=== PATIENT | female | born 1995 | race Caucasian/White ===

== ENCOUNTER 2016-11-19 11:09 | Emergency (ER) | payer SELFPAY ==
[~2016-11-19] VITALS: Ht 165.1 cm; Wt 70.0 kg
[2016-11-19 11:14] VITALS: BP 124/81; PULSE 99; RESP 16; TEMP 98.9; O2SAT 98
--- NOTE | 2016-11-19 11:42 | PD ---
HPI Chief Complaint: Musculoskeletal Complaint Time Seen by Provider: 11:38 Travel History International Travel<30 days: No Contact w/Intl Traveler<30days: No Traveled to known affect area: No History of Present Illness HPI 21-year-old female presents to the emergency room for evaluation of right foot pain and swelling for the past 2 days. Patient states she was riding her house when she slammed her right lateral foot on the couch. She has had severe pain since then. Pain is worse with range of motion and palpation. Swelling has decreased slightly since onset. She has not applied any heat or ice or taken any Tylenol or ibuprofen for pain. She has been ambulatory since onset of symptoms. Denies chronic medical conditions or daily medications. Denies paresthesias. PFSH Past Medical History Influenza Vaccination: No ?: Not LMP: 2 weeks ago Social History Alcohol Use: No Tobacco Use: Yes (1PPD) Substance Use: No Allergies-Medications (Allergen,Severity, Reaction): Coded Allergies: No Known Allergies (Unverified , 11/19/16) Reported Meds & Prescriptions Reported Meds & Active Scripts Active No Active Prescriptions or Reported Medications Review of Systems Except as stated in HPI: all other systems reviewed are Neg Physical Exam Narrative GENERAL: Well-nourished, well-developed female in no acute distress. Afebrile. SKIN: Warm and dry. Moderate erythema of the right lateral foot. Moderate to severe ecchymosis on the right fifth digit. Increased warmth of the right foot. HEAD: Normocephalic. EYES: No scleral icterus. No injection or drainage. NECK: Supple, trachea midline. No JVD or lymphadenopathy. EXTREMITY: Extreme tenderness to palpation of the fifth metatarsal. Limited range of motion secondary to pain. Mild to moderate edema of the right lateral foot. 2+ dorsalis pedis pulse. Compartments soft. Data Data Last Documented VS Vital Signs Date Time Temp Pulse Resp B/P Pulse Ox O2 Delivery O2 Flow Rate FiO2 11/19/16 11:14 98.9 99 16 124/81 98 Orders Foot, Complete ([id number]) (11/19/16 ) Splint Or Brace Apply/Monitor (11/19/16 12:02) MDM Medical Decision Making Medical Screen Exam Complete: Yes Emergency Medical Condition: Yes Medical Record Reviewed: Yes Differential Diagnosis Contusion versus sprain versus fracture versus strain Narrative Course 21-year-old female presents to the emergency room for evaluation of right foot pain and swelling for the past 2 days. Patient was running through her house and she slammed her right foot against the couch. Right lower extremity is neurovascularly intact with 2+ dorsalis pedis pulse. There is moderate ecchymosis, erythema, and increased warmth and extreme tenderness to palpation over the fifth metatarsal. Compartments soft. Less than 2 second capillary refill. Denies paresthesias. X-ray shows no acute abnormality. Patient placed in a postop shoe and discharged with orthopedic instructions and crutches. Told to follow up with her primary care physician or return for worsening symptoms. She understands and agrees to plan. Diagnosis Primary Impression: Right foot sprain Qualified Code: S93.601A - Right foot sprain, initial encounter Referrals: Primary Care Physician Patient Instructions: Foot Sprain (ED), General Instructions Additional Instructions: Rest and drink plenty of fluids. Use shoe and crutches as needed for pain. Take ibuprofen with food as directed, as needed for pain. Elevate and apply ice to the affected area for 20 minutes at a time, as needed for pain and swelling. Follow-up with a primary care physician. Return to the emergency room for worsening symptoms. Scripts No Active Prescriptions or Reported Meds Disposition: 01 DISCHARGE HOME Condition: Stable Monse Arcos Nov 19, 2016 11:42
--- NOTE | 2016-11-19 11:57 | RADHPO ---
EXAM DATE/TIME: 11/19/2016 11:37 [facility] COMPARISON: None. INDICATIONS : Stubbed right foot , has pain and swelling MEDICAL HISTORY : None. SURGICAL HISTORY : None. ENCOUNTER: Initial ACUITY: 2 days PAIN SCORE: 8/10 LOCATION: Right foot FINDINGS: Three view examination of the right foot demonstrates no soft tissue swelling, dislocation, or fractu re. The tarsal bones appear intact. The interphalangeal and metatarsophalangeal joints are intact. The calcaneus is intact. Bony mineralization is normal. CONCLUSION: Unremarkable examination of the right foot. Genaro Turner Jr., MD Board Certified Radiologist. This report was verified electronically.
== END 2016-11-19 12:23 | disposition home or self-care (01) ==
LOC: PHEFT 11:09
DX: S93.601A Unspecified sprain of right foot, initial encounter (principal); W22.03XA Walked into furniture, initial encounter; Y92.009 Unspecified place in unspecified non-institutional (private) residence as the place of occurrence of the external cause
CPT/HCPCS: 73630; 99283; E0113; L3260

== ENCOUNTER 2018-03-12 14:59 | Emergency (ER) | payer SELFPAY ==
[~2018-03-12] VITALS: Ht 165.1 cm; Wt 72.0 kg
[2018-03-12 15:23] VITALS: BP 128/62; PULSE 108; RESP 17; TEMP 98.6; O2SAT 95
[2018-03-12] MEDS ORDERED: ACETAMINOPHEN/HYDROcodone 325 MG/5 MG TAB PO ONE (16:00)
--- NOTE | 2018-03-12 16:02 | PD ---
HPI Chief Complaint: Injury Time Seen by Provider: 15:39 Travel History International Travel<30 days: No Contact w/Intl Traveler<30days: No Traveled to known affect area: No History of Present Illness HPI 22-year-old right-hand dominant female presents the ED for evaluation of 6/10 right hand and wrist pain. Quality throbbing. Onset last night after she tripped over her dog and fell to the floor, "punching" the floor. She endorses limitations to range of motion secondary to pain. Pain is worsened by attempted range of motion. No alleviating factors reported. She has never injured the hand before. She treated at home with ice with no improvement of symptoms. A friend drove her to the ED today. [facility] Social History Alcohol Use: No Tobacco Use: Yes (1PPD) Substance Use: No Allergies-Medications (Allergen,Severity, Reaction): Coded Allergies: No Known Allergies (Unverified Adverse Reaction, Unknown, 03/12/18) Reported Meds & Prescriptions Reported Meds & Active Scripts Active Ibuprofen 600 Mg Tab 600 Mg PO Q8HR PRN Review of Systems Except as stated in HPI: all other systems reviewed are Neg Physical Exam Narrative GENERAL: Well-nourished, well-developed white female no acute distress. SKIN: Focused skin assessment warm/dry. HEAD: Normocephalic. EYES: No scleral icterus. No injection or drainage. NECK: Supple, trachea midline. No JVD or lymphadenopathy. CARDIOVASCULAR: Regular rate and rhythm without murmurs, gallops, or rubs. RESPIRATORY: Breath sounds equal bilaterally. No accessory muscle use. GASTROINTESTINAL: Abdomen soft, non-tender, nondistended. MUSCULOSKELETAL: No cyanosis, or edema. FOCUSED RIGHT UPPER EXTREMITY EXAM: 2+ radial pulse. No snuffbox tenderness. Tender to palpation of the fourth and fifth metacarpals. Tender to palpation of the wrist bones. Patient is able to flex and extend the fingers. Abduction of the thumb elicits pain. Patient resistant to flexion and extension of the wrist. No pain elicited with supination and pronation of the wrist. Cap refill less than 5 seconds. Sensation intact to light touch distally. BACK: Nontender without obvious deformity. No CVA tenderness. Data Data Last Documented VS Vital Signs Date Time Temp Pulse Resp B/P (MAP) Pulse Ox O2 Delivery O2 Flow Rate FiO2 03/12/18 15:23 98.6 108 17 128/62 (84) 95 Orders Orders Hand, Complete ([id number]) (03/12/18 15:44) Wrist, Complete ([id number]) (03/12/18 15:44) Acetamin-Hydrocod 325-5 Mg (Spraggs 5-325 (03/12/18 16:00) Ice / Cold Pack PRN (03/12/18 15:49) ^ Splint (03/12/18 16:22) Ed Discharge Order (03/12/18 16:22) MDM Medical Decision Making Medical Screen Exam Complete: Yes Emergency Medical Condition: Yes Differential Diagnosis Contusion versus boxers fracture versus wrist sprain versus wrist fracture versus other Narrative Course 22-year-old right-hand dominant female presents the ED for evaluation of 6/10 right hand and wrist pain. Onset last night after she tripped over her dog and fell to the floor, "punching" the floor. Vitals reviewed. On exam the patient has tenderness to palpation of the fourth and fifth metacarpals as well as the bones of the wrist. Patient resistant to flexion extension of the wrist secondary to pain. There is mild edema, no visible bruising. Neurovascularly intact distally. Good palpable pulse. Patient was administered 5 mg Spraggs. X- rays of the hand and wrist reveal no acute bony fracture. This is strain/ sprain. Patient was provided with a Velcro wrist splint, short course of anti- inflammatories, instructed to use RICE therapy, follow with the hand surgeon if symptoms do not resolve. She indicated understanding of instructions and is agreeable to care plan. The patient is stable and discharged home. Diagnosis Primary Impression: Contusion of hand, right Qualified Codes: S60.221A - Contusion of right hand, initial encounter Additional Impression: Strain of right wrist Qualified Codes: S66.911A - Strain of unspecified muscle, fascia and tendon at wrist and hand level, right hand, initial encounter Referrals: Genevieve Mccauley MD Hand Surgeon Additional Instructions: Rest, ice, elevate the extremity. Apply ice no longer than 10-15 minutes per hour a few times a day. 800 mg ibuprofen up to 3 times a day as needed for pain. Return to normal, gentle activity as tolerated. No heavy lifting or overuse for 1 week. Follow up with hand surgeon or orthopedist or primary care Return to the ED for any urgent or emergent medical condition. Med/Other Pt SpecificInfo: Prescription(s) given Scripts Ibuprofen (Ibuprofen) 600 Mg Tab 600 MG PO Q8HR Y for PAIN, #15 TAB 0 Refills Prov: Kirstie Delatorre DO 03/12/18 Disposition: 01 DISCHARGE HOME Condition: Stable Hilda Mason March 12, 2018 16:02
--- NOTE | 2018-03-12 16:14 | RADRPT ---
EXAM DATE: 03/12/2018 4:04 PM EDT AGE/SEX: 22 years / Female INDICATIONS: Right hand pain post fall. CLINICAL DATA: This is the patient's initial encounter. Patient reports that signs and symptoms have been present for 2 days and indicates a pain score of 8/10. MEDICAL/SURGICAL HISTORY: None. None. COMPARISON: No prior [facility] exams available for comparison. FINDINGS: Bony structures are intact and in normal alignment. Osseous density is normal. Soft tiss ues are unremarkable. No radiopaque foreign bodies seen. CONCLUSION: No acute bony injury Electronically signed by: El Cox MD 03/12/2018 4:13 PM EDT
--- NOTE | 2018-03-12 16:17 | RADRPT ---
EXAM DATE: 03/12/2018 4:06 PM EDT AGE/SEX: 22 years / Female INDICATIONS: Right wrist pain with swelling post fall. CLINICAL DATA: This is the patient's initial encounter. Patient reports that signs and symptoms have been present for 2 days and indicates a pain score of 8/10. MEDICAL/SURGICAL HISTORY: None. None. COMPARISON: No prior [facility] exams available for comparison. FINDINGS: Bony structures are intact and in normal alignment. Joints are intact without dislocation or significant arthropathy. Osseous density is normal. Soft tissues are unremarkable. No radiopaq ue foreign bodies seen. CONCLUSION: No evidence of recent bony injury. Electronically signed by: Tim Portillo MD 03/12/2018 4:16 PM EDT
[2018-03-12] MEDS ORDERED: IBUP-232 PO (16:23)
== END 2018-03-12 16:52 | disposition home or self-care (01) ==
LOC: NEPK 14:59
DX: S60.221A Contusion of right hand, initial encounter (principal); S66.911A Strain of unspecified muscle, fascia and tendon at wrist and hand level, right hand, initial encounter; W01.0XXA Fall on same level from slipping, tripping and stumbling without subsequent striking against object, initial encounter
CPT/HCPCS: 73110; 73130; 99283